=== PATIENT | female | born 1965 | race Caucasian/White ===

== ENCOUNTER 2018-09-26 01:37 | Outpatient (CLI) | payer OTHER, SELFPAY ==
[2018-09-26 16:57] LABS: ALT 30 U/L (12-78); AST 29 U/L (15-37); Alkaline Phosphatase 71 U/L (46-116); Anion Gap 9.1 mmol/L (3-11); BUN 19 mg/dL (7-18); Bilirubin, Total 0.3 mg/dL (0.2-1.0); CO2 30.9 mmol/L (21.0-32.0); CREATININE 0.83 mg/dL (0.55-1.02); Calcium 9.1 mg/dL (8.5-10.1); Chloride 99 mmol/L (98-107); Glucose 101 mg/dL (70-100); Potassium 3.7 mmol/L (3.5-5.1); Sodium 139 mmol/L (136-145); Total Protein 7.9 g/dL (6.4-8.2)
[2018-09-26 18:43] LABS: Abs Immature Grans 0.02 k/cumm (0.0-0.09); Absolute Basophil Count 0.07 k/cumm (0.0-0.2); Absolute Eosinophil Count 0.11 k/cumm (0.0-0.7); Absolute Lymphocyte Count 1.63 k/cumm (1.2-3.4); Absolute Monocyte Count 0.63 k/cumm (0.11-0.7); Absolute Neutrophil Count 3.38 k/cumm (1.2-6.7); Basophils % 1.2; Eosinophils % 1.9; HCT 39.8 % (36.0-46.0); HGB 12.9 g/dL (12.0-15.5); Immature Grans % 0.3; Lymphocytes % 27.9; Mean Corp. HGB Concentration 32.4 g/dL (32.0-36.0); Mean Corpuscular Hemoglobin 33.5 pg (27.0-33.0); Mean Corpuscular Volume 103.4 fL (80-95); Mean Platelet Volume 10.8 fL (8.0-11.0); Monocytes % 10.8; Neutrophils % 57.9; Platelet Count 328 x1000/uL (130-400); RBC 3.85 m/cumm (4.00-5.20); RBC Distribution Width 13.2 % (11.7-14.6); White Blood Cell Count 5.84 k/cumm (4.4-10.8)
== END 2018-09-26 01:57 ==
PROVIDERS: PCP Nurse Practitioner; Visit Provider Internal Medicine Rheumatology
DX: M05.9 Rheumatoid arthritis with rheumatoid factor, unspecified (principal); M19.079 Primary osteoarthritis, unspecified ankle and foot; Z79.899 Other long term (current) drug therapy
CPT/HCPCS: 36415; 80053; 85025

== ENCOUNTER 2018-11-05 08:27 | Outpatient (CLI) | payer OTHER, SELFPAY ==
[2018-11-05 15:25] LABS: Mean Corp. HGB Concentration 32.5 g/dL (32.0-36.0); Mean Corpuscular Hemoglobin 33.8 pg (27.0-33.0); Mean Corpuscular Volume 103.9 fL (80-95); Mean Platelet Volume 10.5 fL (8.0-11.0); Platelet Count 281 x1000/uL (130-400); RBC 3.85 m/cumm (4.00-5.20); RBC Distribution Width 13.2 % (11.7-14.6); White Blood Cell Count 5.27 k/cumm (4.4-10.8)
[2018-11-05 15:54] LABS: ALT 32 U/L (12-78); AST 28 U/L (15-37); Albumin 4.1 g/dL (3.4-5.0); Alkaline Phosphatase 75 U/L (46-116); Anion Gap 8.8 mmol/L (3-11); BUN 21 mg/dL (7-18); Bilirubin, Total 0.3 mg/dL (0.2-1.0); CO2 30.2 mmol/L (21.0-32.0); CREATININE 0.93 mg/dL (0.55-1.02); Calcium 9.4 mg/dL (8.5-10.1); Chloride 103 mmol/L (98-107); Glucose 109 mg/dL (70-100); Potassium 4.3 mmol/L (3.5-5.1); Sodium 142 mmol/L (136-145); Total Protein 7.6 g/dL (6.4-8.2)
== END 2018-11-05 08:47 ==
PROVIDERS: PCP Nurse Practitioner; Visit Provider Internal Medicine Rheumatology
DX: M05.9 Rheumatoid arthritis with rheumatoid factor, unspecified (principal); M19.079 Primary osteoarthritis, unspecified ankle and foot; Z79.899 Other long term (current) drug therapy
CPT/HCPCS: 36415; 80053; 85027

== ENCOUNTER 2019-01-21 00:46 | Outpatient (CLI) | payer OTHER, SELFPAY ==
--- NOTE | 2019-01-21 14:10 | DI.MAMMO_ITS ---
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 Comparison is with the prior examinations. No suspicious masses or microcalcifications are seen. The patient is status post left lumpectomy. The skin and axillae appear stable. IMPRESSION: No evidence for malignancy. Yearly mammography is recommended. Category 2. Breast density B. MQSA ASSESSMENT OF FINDINGS: Negative with benign findings. Category 2. Patient will receive a letter notifying them of these results. BI-RADS category B. There are scattered areas of fibroglandular density.
== END 2019-01-21 01:06 ==
PROVIDERS: PCP Nurse Practitioner; Visit Provider Nurse Practitioner Adult Health
DX: C50.412 Malignant neoplasm of upper-outer quadrant of left female breast (principal); Z17.0 Estrogen receptor positive status [ER+]; Z98.890 Other specified postprocedural states
CPT/HCPCS: 77063; 77067

== ENCOUNTER 2020-02-17 16:36 | Outpatient (REF) | payer SELFPAY ==
[2020-02-19 20:04] LABS: SARS-CoV-2 RNA Undetected (Undetected); SARS-CoV-2 Specimen Source Nasopharynx
== END 2020-02-17 16:56 ==
LOC: NCHCN 16:36
PROVIDERS: PCP Nurse Practitioner; Visit Provider Physician Assistant
DX: R50.9 Fever, unspecified (principal); Z03.818 Encounter for observation for suspected exposure to other biological agents ruled out
CPT/HCPCS: U0003

== ENCOUNTER 2021-02-12 02:26 | Outpatient (CLI) | payer BC, SELFPAY ==
--- NOTE | 2021-02-12 16:12 | DI.RAD_ITS ---
EXAM: XR HUMERUS LT CLINICAL HISTORY: ARM INJURY,LT INITIAL ENCOUNTER,S49.92XA,H/O FALL,ONGOING PAIN, ? HEALING TECHNIQUE: COMPARISON: No exams were available for comparison FINDINGS: The patient has reported history of a remote traumatic injury to the shoulder in September of 2020. O n today's examination there is a glenohumeral anterior dislocation with fracture of the greater tuber osity of the humerus with moderate displacement and evidence of attempted bony healing at the fractur e site. No additional fracture identified although the glenoid is not well visualized. The possibil ity of additional fracture involving the glenoid could not be excluded on these films. IMPRESSION: RADIATION DOSE DELIVERED: Total DLP
--- NOTE | 2021-02-12 16:18 | DI.VRAD_ITS ---
PROCEDURE INFORMATION: Exam: XR Left Humerus Exam date and time: 02/12/2021 8:22 AM Age: 55 years old Clinical indication: Injury or trauma; Blunt trauma (contusions or hematomas); Arm, upper; Left; Injury date: 09/2020; Patient HX: Arm injury, lt initial encounter, , h/o fall, ongoing pain, ? healing; Additional info: PT fell 09/2020 - no imaging taken until today TECHNIQUE: Imaging protocol: XR Left humerus. Views: 2 or more views. COMPARISON: No relevant prior studies available. FINDINGS: Bones/joints: Anterior glenohumeral dislocation with Hill-Sachs fracture. Soft tissues: Normal. IMPRESSION: Anterior glenohumeral dislocation with Hill-Sachs fracture. Dictated and Authenticated by: Ramsey Mays MD. Ordering:JOÃO Block MD
[2021-02-12 16:26] LABS: Abs Immature Grans 0.03 10^3/uL (0.0-0.06); Absolute Basophil Count 0.06 10^3/uL (0.0-0.2); Absolute Lymphocyte Count 1.73 10^3/uL (1.2-3.4); Absolute Neutrophil Count 3.06 10^3/uL (1.2-6.7); Basophils % 1.1; ESR 6 mm//hr (0-30); Eosinophils % 1.8; HCT 39.6 % (36.0-46.0); Immature Grans % 0.5; MCH 33.6 pg (27.0-33.0); MCHC 32.8 % (32.0-36.0); MCV 102.3 fL (80-95); Monocytes % 10.8; Neutrophils % 54.8; Nucleated RBC 0 %; Platelet Count 364 10^3/uL (130-400); RBC 3.87 10^6/uL (3.93-5.22); RDW 13.4 % (11.7-14.6); RDW-SD 50.4 fL; WBC 5.58 10^3/uL (4.4-10.8)
[2021-02-12 17:20] LABS: ALT 27 U/L (14-59); AST 22 U/L (15-37); Albumin 4.1 g/dL (3.4-5.0); Alkaline Phosphatase 85 U/L (46-116); Anion Gap 8.5 mmol/L (3-11); BUN 18 mg/dL (7-18); Bilirubin, Total 0.4 mg/dL (0.2-1.0); C-Reactive Protein 0.52 mg/dL (0.0-0.3); CO2 30.5 mmol/L (21.0-32.0); CREATININE 0.9 mg/dL (0.55-1.02); Calcium 9.5 mg/dL (8.5-10.1); Chloride 100 mmol/L (98-107); Glucose 95 mg/dL (74-106); Potassium 4.1 mmol/L (3.5-5.1); Sodium 139 mmol/L (136-145); Total Protein 7.5 g/dL (6.4-8.2)
[2021-02-15 05:41] LABS: Vitamin D 25 Total 10.6 ng/mL (30-100)
== END 2021-02-12 02:46 ==
PROVIDERS: PCP Nurse Practitioner; Visit Provider Internal Medicine Rheumatology
DX: M79.632 Pain in left forearm (principal)
CPT/HCPCS: 36415; 80053; 82306; 85652; 73060; 85025; 86140

== ENCOUNTER 2021-03-16 01:21 | Outpatient (CLI) | payer BC, SELFPAY ==
--- NOTE | 2021-03-16 | DI.DEXA_ITS ---
Exam(s) XR DEXA BONE DENSITY W/WO NILA EXAM: XR DEXA BONE DENSITY W/WO NILA CLINICAL HISTORY: RECENT FALL AND FRACTURES, H/O BREAST CA,OSTEOPOROSIS,M81.0 TECHNIQUE: COMPARISON: DX DEXA BONE DENSITY WITH NILA from 07/26/2016 FINDINGS: Lateral Spine Image: There is now anterior wedging of the T12 vertebral body. This was not present o n the prior DEXA scan from 07/26/2016. Left hip: Total T-Score: -0.1. This compares to 0.1 on the prior examination. Total Z-Score: 0.7 T- and Z-scores: Within normal limits. Lumbar Spine: Total T-Score: 1.2. This compares to 1.5 on the prior examination. Total Z-Score: 2.5 T- and Z-scores: Within normal limits. IMPRESSION: No evidence of osteoporosis.
== END 2021-03-16 01:41 ==
PROVIDERS: PCP Nurse Practitioner; Visit Provider Internal Medicine Rheumatology
DX: Z85.3 Personal history of malignant neoplasm of breast (principal); Z13.820 Encounter for screening for osteoporosis; Z91.81 History of falling; S22.080A Wedge compression fracture of T11-T12 vertebra, initial encounter for closed fracture
CPT/HCPCS: 77080

== ENCOUNTER 2022-01-31 03:23 | Outpatient (CLI) | payer BC, SELFPAY ==
[2022-01-31 11:33] LABS: Abs Immature Grans 0.02 10^3/uL (0.0-0.06); Absolute Basophil Count 0.07 10^3/uL (0.0-0.2); Absolute Eosinophil Count 0.15 10^3/uL (0.0-0.7); Absolute Lymphocyte Count 1.74 10^3/uL (1.2-3.4); Absolute Monocyte Count 0.62 10^3/uL (0.1-0.8); Absolute Neutrophil Count 4.82 10^3/uL (1.2-6.7); Basophils % 0.9; HCT 40.8 % (36.0-46.0); HGB 13.4 g/dL (11.2-15.7); Immature Grans % 0.3; Lymphocytes % 23.5; MCH 33.8 pg (27.0-33.0); MCHC 32.8 % (32.0-36.0); MCV 102.8 fL (80-95); MPV 9.8 fL (8.0-11.0); Monocytes % 8.4; Neutrophils % 64.9; Nucleated RBC 0 %; Platelet Count 365 10^3/uL (130-400); RBC 3.97 10^6/uL (3.93-5.22); RDW 14.7 % (11.7-14.6); RDW-SD 55.9 fL; WBC 7.42 10^3/uL (4.4-10.8)
[2022-01-31 11:41] LABS: ESR 8 mm/hr (0-30)
[2022-01-31 12:58] LABS: ALT 24 U/L (14-59); AST 20 U/L (15-37); Albumin 4.1 g/dL (3.4-5.0); Alkaline Phosphatase 75 U/L (46-116); Anion Gap 9.1 mmol/L (3-11); BUN 17 mg/dL (7-18); Bilirubin, Total 0.4 mg/dL (0.2-1.0); C-Reactive Protein 0.42 mg/dL (0.0-0.3); CO2 27.9 mmol/L (21.0-32.0); Calcium 9.3 mg/dL (8.5-10.1); Chloride 103 mmol/L (98-107); Estimated GFR 56.95 (mL/min/1.73m2); Glucose 102 mg/dL (74-106); Potassium 4.4 mmol/L (3.5-5.1); Sodium 140 mmol/L (136-145); Total Protein 7.5 g/dL (6.4-8.2)
[2022-01-31 13:30] LABS: Vitamin D 25 Total 25.4 ng/mL (30-100)
== END 2022-01-31 03:24 | disposition home or self-care (01) ==
LOC: LBO 03:24
PROVIDERS: PCP Nurse Practitioner; Visit Provider Internal Medicine Rheumatology
DX: M89.49 Other hypertrophic osteoarthropathy, multiple sites (principal); M81.0 Age-related osteoporosis without current pathological fracture; M05.79 Rheumatoid arthritis with rheumatoid factor of multiple sites without organ or systems involvement; M22.2X1 Patellofemoral disorders, right knee; E55.9 Vitamin D deficiency, unspecified; Z79.899 Other long term (current) drug therapy; M22.2X2 Patellofemoral disorders, left knee
CPT/HCPCS: 36415; 80053; 82306; 85652; 85025; 86140

== ENCOUNTER 2022-03-31 03:15 | Outpatient (RCR) | payer BC, SELFPAY ==
[2022-03-31] MEDS: Normal Saline 500 ML IV (13:35)
[2022-03-31] MEDS: Acetaminophen 325 MG TAB 650 MG PO (13:40)
[2022-03-31] MEDS: ZOLEDRONIC ACID/MANNITOL/WATER 5 MG/100 ML BTL 300 MG IVPB (14:12)
[2022-03-31] MEDS: Normal Saline Flush 10 ML SYR IVP (14:17)
== END 2022-04-12 23:59 | disposition home or self-care (01) ==
LOC: INF 03:15
PROVIDERS: PCP Nurse Practitioner; Visit Provider Nurse Practitioner Acute Care
DX: M81.0 Age-related osteoporosis without current pathological fracture (principal)
CPT/HCPCS: 96360; 96365; J3489

== ENCOUNTER → 2022-05-24 01:40 | Outpatient (CLI) | payer BC, SELFPAY ==
--- NOTE | 2022-05-24 | DI.MRI_ITS ---
Exam(s) MR ABDOMEN WO/W EXAM: MR ABDOMEN WO/W CLINICAL HISTORY: LOBULATION OF KIDNEY Q63.1, INCIDENTAL FINDINGS CT TECHNIQUE: Multiplanar multisequence MRA of the Abdomen was performed. CONTRAST MATERIAL: IV Contrast: 15 mL of Dotarem contrast administered. FINDINGS: Liver: There is a 1.3 cm simple hepatic cyst. Pancreas: There is fatty atrophy of the pancreas. No pancreatic mass is seen. Gallbladder and Bile Ducts: Unremarkable. No biliary ductal dilatation. Adrenals: Unremarkable. Kidneys: There is a 9 mm simple cyst in the midpole of the right kidney. No follow-up is recommended . There is no renal mass. There is some flattening of the cortex in the anterolateral superior aspe ct of the left kidney which may be due to prior renal injury. This does appear to create the appeara nce of an adjacent a ???mass???. Spleen: Unremarkable. Bowel: Scattered diverticula are seen in the colon, but no evidence of acute diverticulitis. Aorta: Unremarkable. Soft Tissues: Unremarkable. Bone: Within normal limits for the patient's age. Lymph Nodes: Unremarkable. IMPRESSION: 1. No renal mass to correspond to the findings seen on the CT scan. The area corresponds to normal r enal parenchyma. 2. Hepatic and renal cysts. No follow-up is recommended. 3. Colonic diverticulosis, but no evidence of acute diverticulitis. 4. Fatty atrophy of the pancreas. DATA REPOSITORY:
== END ==
PROVIDERS: PCP Nurse Practitioner Family; Visit Provider Nurse Practitioner Family
DX: Q63.1 Lobulated, fused and horseshoe kidney (principal); N28.1 Cyst of kidney, acquired; K76.89 Other specified diseases of liver; K57.30 Diverticulosis of large intestine without perforation or abscess without bleeding; K86.89 Other specified diseases of pancreas
CPT/HCPCS: 74183

== ENCOUNTER → 2022-07-15 01:03 | Outpatient (CLI) | payer BC, SELFPAY ==
--- NOTE | 2022-07-15 | DI.RAD_ITS ---
Exam(s) XR FOOT RT COMPLETE EXAM: XR FOOT RT COMPLETE CLINICAL HISTORY: CAMPOS FOOT PAIN, RA WORSE, ? PROGRESSION OF DISEASE TECHNIQUE: COMPARISON: No exams were available for comparison FINDINGS: There is marked loss of the cartilaginous joint space of the 1st MTP joint. There is fragmentations of the bones at this joint with subchondral sclerosis and cyst formation of the adjacent bones. Prom inent hypertrophic marginal osteophytes are present. Findings are consistent with DJD. Degenerative changes also seen involving IP joints. Loss of the cartilaginous joint spaces of midfoot joints also noted with associated hypertrophic delaney inal osteophytes, probably also degenerative in nature. Regarding the question of rheumatoid arthritis raised in this patient, there is question of demineral ization of the heads of the proximal phalanges of the toes as well as the heads and bases of the meta tarsals, demineralization may be seen in rheumatoid arthritis. IMPRESSION: RADIATION DOSE DELIVERED: Total DLP
--- NOTE | 2022-07-15 | DI.RAD_ITS ---
Exam(s) XR HAND LT COMPLETE EXAM: XR HAND LT COMPLETE CLINICAL HISTORY: RA, ASSESS PROGRESSION OF DISEASE TECHNIQUE: COMPARISON: CR XR HAND RT COMPLETE from 07/15/2022 FINDINGS: Three views were obtained. Bones appear normally mineralized. There are minimal degenerative change s at the greater multangular 1st metacarpal joint. No other bony or soft tissue abnormality seen. N o specific findings to suggest rheumatoid arthritis. IMPRESSION: RADIATION DOSE DELIVERED: Total DLP
--- NOTE | 2022-07-15 | DI.RAD_ITS ---
Exam(s) XR FOOT LT COMPLETE EXAM: XR FOOT LT COMPLETE CLINICAL HISTORY: CAMPOS FOOT PAIN, RA, WORSE NOW, ? PROGRESSION OF DISEASE TECHNIQUE: COMPARISON: CR XR FOOT RT COMPLETE from 07/15/2022 FINDINGS: Three views were obtained. There is mild narrowing of the cartilaginous joint spaces of the IP joint s and the 1st MTP joint with marginal osteophytes consistent with degenerative changes. Mild DJD of midfoot joints noted as well. Plantar fascia attachment enthesophyte of the calcaneus noted. There is a question of mild demineralization of the heads of the proximal phalanges and metatarsals, this finding could be associated with rheumatoid arthritis. IMPRESSION: RADIATION DOSE DELIVERED: Total DLP
--- NOTE | 2022-07-15 | DI.RAD_ITS ---
Exam(s) XR HAND RT COMPLETE EXAM: XR HAND RT COMPLETE CLINICAL HISTORY: RA, ASSESS PROGRESSION OF DISEASE TECHNIQUE: COMPARISON: No exams were available for comparison FINDINGS: Three views were obtained. The bones appear normally mineralized. Cartilaginous joint spaces are we ll maintained. No bony or soft tissue abnormality seen. IMPRESSION: RADIATION DOSE DELIVERED: Total DLP
== END ==
PROVIDERS: PCP Nurse Practitioner Family; Visit Provider Internal Medicine Rheumatology
DX: M05.9 Rheumatoid arthritis with rheumatoid factor, unspecified (principal); M79.641 Pain in right hand; M79.642 Pain in left hand; M79.671 Pain in right foot; M79.672 Pain in left foot; M19.071 Primary osteoarthritis, right ankle and foot; M19.072 Primary osteoarthritis, left ankle and foot; M77.52 Other enthesopathy of left foot and ankle; Z79.899 Other long term (current) drug therapy; G89.29 Other chronic pain
CPT/HCPCS: 73130; 73630

== ENCOUNTER 2022-07-15 02:12 | Outpatient (CLI) | payer BC, SELFPAY ==
[2022-07-15 16:09] LABS: Abs Immature Grans 0.04 10^3/uL (0.0-0.06); Absolute Basophil Count 0.07 10^3/uL (0.0-0.2); Absolute Eosinophil Count 0.14 10^3/uL (0.0-0.7); Absolute Lymphocyte Count 2.21 10^3/uL (1.2-3.4); Absolute Neutrophil Count 3.97 10^3/uL (1.2-6.7); Eosinophils % 1.9; HGB 13.2 g/dL (11.2-15.7); Immature Grans % 0.5; Lymphocytes % 30.2; MCH 33.2 pg (27.0-33.0); MCV 101 fL (80-95); MPV 10.5 fL (8.0-11.0); Monocytes % 12.3; Neutrophils % 54.1; Platelet Count 372 10^3/uL (130-400); RBC 3.97 10^6/uL (3.93-5.22); RDW 14.4 % (11.7-14.6); RDW-SD 53.6 fL; WBC 7.33 10^3/uL (4.4-10.8)
[2022-07-15 16:13] LABS: ESR 8 mm/hr (0-30)
[2022-07-15 16:29] LABS: ALT 21 U/L (14-59); AST 18 U/L (15-37); Albumin 4.2 g/dL (3.4-5.0); Alkaline Phosphatase 72 U/L (46-116); Anion Gap 8.5 mmol/L (3-11); BUN 18 mg/dL (7-18); Bilirubin, Total 0.3 mg/dL (0.2-1.0); C-Reactive Protein 1.04 mg/dL (0.0-0.3); CO2 29.5 mmol/L (21.0-32.0); Chloride 103 mmol/L (98-107); Glucose 102 mg/dL (74-106); Sodium 141 mmol/L (136-145); Total Protein 7.9 g/dL (6.4-8.2)
== END 2022-07-15 02:13 | disposition home or self-care (01) ==
PROVIDERS: PCP Nurse Practitioner Family; Referring Provider Pediatrics; Visit Provider Internal Medicine Rheumatology
DX: E55.9 Vitamin D deficiency, unspecified (principal); M15.9 Polyosteoarthritis, unspecified; M81.0 Age-related osteoporosis without current pathological fracture; M05.79 Rheumatoid arthritis with rheumatoid factor of multiple sites without organ or systems involvement; Z79.899 Other long term (current) drug therapy
CPT/HCPCS: 36415; 80053; 85652; 85025; 86140

== ENCOUNTER 2022-09-01 11:24 | Outpatient (REF) | payer BC, SELFPAY ==
[2022-09-01 16:07] LABS: Vitamin D 25 Total 44.3 ng/mL (30-100)
[2022-09-01 16:11] LABS: Calculated LDL 156 mg/dL (<100); Cholesterol 277 mg/dL (<200); HDL Cholesterol 103 mg/dL (40-60); TSH (W/Ref FT4) 3.07 uIU/mL (0.36-3.74); Triglyceride 91 mg/dL (<150)
== END 2022-09-01 11:25 | disposition home or self-care (01) ==
LOC: NCHCN 11:24
PROVIDERS: PCP Nurse Practitioner Family; Visit Provider Nurse Practitioner Family
DX: E03.9 Hypothyroidism, unspecified (principal); E78.5 Hyperlipidemia, unspecified; J84.9 Interstitial pulmonary disease, unspecified; Z13.21 Encounter for screening for nutritional disorder; M06.9 Rheumatoid arthritis, unspecified
CPT/HCPCS: 80061; 82306; 84443

== ENCOUNTER 2022-09-06 11:16 | Outpatient (REF) | payer BC, SELFPAY ==
--- NOTE | 2022-09-06 10:30 | PAPFT_PTH ---
PATIENT: Ivette Keller LOC: [facility] U#:[id number] AGE/SX: 56/F ROOM: RE09/06/[address]: LORETTA RAI : 1965 BED: DIS: 09/06/2022 SPEC #: [id number] RECD: 09/06/22 17:23 STATUS: RAJANI REQ #: [id number] JR: 09/06/22 10:[address]: Loretta Rai DEPT: [facility] Cytology RECD BY: Elena Ugarte ENTERED: 09/06/22 17:23 SP TYPE: PAPFT ZA DR: JOSE ALEJANDRO CORBIN NP Tissues: 1 - CX/ENDOCX FOR PAP SMEARS Procedures: PAP THIN PREP/[facility] Screening HPV DNA PROBE Comments: [id number]
== END 2022-09-06 11:17 | disposition home or self-care (01) ==
LOC: NCHCN 11:16
PROVIDERS: PCP Nurse Practitioner Family; Visit Provider Nurse Practitioner Family
DX: Z00.00 Encounter for general adult medical examination without abnormal findings (principal); Z12.4 Encounter for screening for malignant neoplasm of cervix; Z11.51 Encounter for screening for human papillomavirus (HPV)
CPT/HCPCS: 88142; 87624

== ENCOUNTER 2023-04-06 02:04 | Outpatient (CLI) | payer BC, SELFPAY ==
--- NOTE | 2023-04-06 10:30 | DI.DEXA_ITS ---
Exam(s) XR DEXA BONE DENSITY W/WO NILA EXAM: XR DEXA BONE DENSITY W/WO NILA CLINICAL HISTORY: RA WITH POSTIIVE RHEUMATOID FACTOR, M05.9; ILD, J84.9; VITAMIN D DEFICIENCY TECHNIQUE: COMPARISON: CR XR DEXA BONE DENSITY W/WO NILA from 03/16/2021 FINDINGS: Lateral Spine Image: Unremarkable. No compression deformities identified. Left hip: Total T-Score: -0.1. This is unchanged compared to the prior examination. Total Z-Score: 0.9 T- and Z-scores: Within normal limits. Lumbar Spine: Total T-Score: 1.0. This compares to 1.2 on the prior examination. Total Z-Score: 2.3 T- and Z-scores: Within normal limits. IMPRESSION: No evidence of osteoporosis.
== END 2023-04-06 02:24 ==
LOC: DI 02:05
PROVIDERS: PCP Nurse Practitioner Family; Visit Provider Internal Medicine Rheumatology
DX: J84.9 Interstitial pulmonary disease, unspecified (principal); M05.9 Rheumatoid arthritis with rheumatoid factor, unspecified
CPT/HCPCS: 77080

== ENCOUNTER 2023-04-07 00:53 | Outpatient (RCR) | payer BC, SELFPAY ==
[2023-04-07] MEDS: Normal Saline 250 ML 500 ML IV (14:00)
[2023-04-07] MEDS: Acetaminophen 325 MG TAB 650 MG PO (14:04)
[2023-04-07] MEDS: Normal Saline Flush 10 ML SYR IVP (14:06)
[2023-04-07] MEDS: ZOLEDRONIC ACID/MANNITOL/WATER 5 MG/100 ML BTL 300 MG IVPB (14:32)
== END 2023-04-12 23:59 | disposition home or self-care (01) ==
LOC: INF 00:53
PROVIDERS: PCP Nurse Practitioner Family; Visit Provider Nurse Practitioner Family
DX: M81.0 Age-related osteoporosis without current pathological fracture (principal)
CPT/HCPCS: 96360; 96365; J3489

== ENCOUNTER 2024-04-12 00:37 | Outpatient (RCR) | payer BC, SELFPAY ==
[2024-04-12] MEDS: ZOLEDRONIC ACID/MANNITOL/WATER 5 MG/100 ML BTL 300 MG IVPB (13:30)
[2024-04-12] MEDS: Normal Saline Flush 10 ML SYR IVP (13:32)
== END 2024-04-12 23:59 | disposition home or self-care (01) ==
LOC: INF 00:37
PROVIDERS: PCP Nurse Practitioner Family; Visit Provider Nurse Practitioner Acute Care
DX: M81.0 Age-related osteoporosis without current pathological fracture (principal)
CPT/HCPCS: 96365; J3489